=== PATIENT | male | born 1955 | race Hispanic/Latino ===

== ENCOUNTER 2024-02-28 01:25 | Inpatient (IN) | payer OTHER ==
[2024-02-29 02:38] VITALS: BMI 30.4
[2024-02-29] MEDS ORDERED: Nitroglycerin 0.4 MG TAB (25 Tab Bottle) SL PRN (03:09)
[2024-02-29] MEDS ORDERED: Insulin Regular, Human 100 UNIT/ML 10 ML VIAL SC PRN ×2 (03:10)
[2024-02-29] MEDS ORDERED: Dextrose 5% in Water 1,000 ML IV PRN (03:10)
[2024-02-29] MEDS ORDERED: Glucagon 1 MG/ML KIT IM PRN (03:10)
[2024-02-29] MEDS ORDERED: Dextrose 50% Abboject 50 ML SYRINGE SLOW IVP PRN (03:10)
[2024-02-29] MEDS: Enoxaparin 40 MG (0.4 mL) SYRINGE SC SCH (08:42)
[2024-02-29] MEDS: Aspirin 81 mg Enteric Coated Tablet PO SCH (08:43)
[2024-02-29] MEDS: Pantoprazole DR 40 MG TAB PO SCH (08:43)
[2024-02-29 10:46] VITALS: BMI 30.4
[2024-02-29] MEDS: Amlodipine 5 MG TAB PO SCH (12:20)
[2024-02-29] MEDS: Atorvastatin Calcium 40 MG TAB PO SCH (19:55)
[2024-03-01] MEDS: Morphine 2 MG/ML VIAL SLOW IVP PRN (08:40)
[2024-03-01] MEDS: Amlodipine 5 MG TAB PO SCH (08:41)
[2024-03-01 09:30] LABS: #Basophils 0.04 10x3/uL (0.0-0.2); %Basophils 0.6 % (0.0-1.0); %Eosinophils 3.5 % (0.0-10.0); %Lymphocytes 22.9 % (21.0-51.0); %Monocytes 7.1 % (0.0-10.0); %Neutrophils 65.8 % (42.0-75.0); Hematocrit 49.1 % (42.0-52.0); Hemoglobin 16.3 g/dL (14.0-18.0); Mean Corpuscular HGB CONC 33.2 g/dL (32.0-36.0); Mean Corpuscular Hemoglobin 28.2 pg (27.0-31.0); Mean Corpuscular Volume 85.1 fL (78.0-98.0); Mean Platelet Volume 10.8 fL (7.4-10.4); Platelet Count 194 10x3/uL (130-400); RBC Distribution Width 13.9 % (11.5-14.5); Red Blood Cell (RBC) Count 5.77 mill/uL (4.70-6.10)
[2024-03-01 09:51] LABS: Hemoglobin A1c 6.4 % (4.0-6.0)
[2024-03-01 09:53] LABS: Anion Gap 13 mmol/L (10-20); BUN (Urea Nitrogen) 20 mg/dL (8.4-25.7); Calc. Creatinine Clearance 95 mL/min (70-130); Calcium 9.5 mg/dL (7.8-10.44); Carbon Dioxide 21 mmol/L (23-31); Cardiac Risk 4.5 (Less than 4.5); Chloride 105 mmol/L (98-107); Cholesterol 153 mg/dl (< 200 Desired); Estimated GFR 91; Glucose 150 mg/dL (80-115); HDL Cholesterol 34 mg/dL (>60 Neg Risk); LDL Cholesterol, Calculated 101 mg/dL; Magnesium 2.1 mg/dL (1.6-2.6); Potassium 3.9 mmol/L (3.5-5.1); Sodium 135 mmol/L (136-145); Triglycerides 91 mg/dL (Less than 150)
[2024-03-01 09:54] LABS: Troponin I Less than 0.010 ng/mL (< 0.028)
[2024-03-03 11:06] VITALS: BP 134/73; TEMP 98.1
== END 2024-03-03 15:08 | DRG 313 ==
LOC: OBS 22:23 → EEVIPCON 22:23 → OBSVTOIN 03-01 09:39
PROVIDERS: ADMIT Internal Medicine; ATTEND Family Medicine
DX: R07.89 Other chest pain (principal); I25.10 Atherosclerotic heart disease of native coronary artery without angina pectoris; F03.90 Unspecified dementia, unspecified severity, without behavioral disturbance, psychotic disturbance, mood disturbance, and anxiety; E78.5 Hyperlipidemia, unspecified; I10 Essential (primary) hypertension; E11.9 Type 2 diabetes mellitus without complications; I77.89 Other specified disorders of arteries and arterioles; Z95.5 Presence of coronary angioplasty implant and graft; Z87.891 Personal history of nicotine dependence; Z86.73 Personal history of transient ischemic attack (TIA), and cerebral infarction without residual deficits; Z91.012 Allergy to eggs; Z91.018 Allergy to other foods
CPT/HCPCS: 36415; 36416; 71275; 80048; 80061; 83036; 83735; 84484; 85025; 93306; 94760; 96372; 96374; G0378; J1650; J2272